=== PATIENT | male | born 1990 | race Caucasian/White ===

== ENCOUNTER 2019-05-13 14:12 | Outpatient (CLI) | payer SELFPAY | END 2019-05-13 14:13 | disposition short-term general hospital (02) | LOC: EMS 14:12 | PROVIDERS: ATTEND Surgery | DX: R41.0 Disorientation, unspecified (principal); M54.9 Dorsalgia, unspecified; V28.0XXA Motorcycle driver injured in noncollision transport accident in nontraffic accident, initial encounter; Y93.89 Activity, other specified; Y92.838 Other recreation area as the place of occurrence of the external cause | CPT/HCPCS: A0425; A0429 ==